=== PATIENT | male | born 1945 | race Caucasian/White ===

== ENCOUNTER 2019-02-16 12:17 | Emergency (ER) | payer MEDICARE, BC ==
[~2019-02-16] VITALS: Ht 177.8 cm; Wt 79.5 kg
[~2019-02-16 12:17] MED LIST: AMLO2.5T2 PO; ASPI-1265 PO; ATEN25TA PO; LEVO75TA PO; LISI-600 PO
[2019-02-16 12:26] VITALS: BP 155/69
[2019-02-16] MEDS ORDERED: normal saline 1000ml 1,000 ML IV ONE (13:00)
[2019-02-16] MEDS: acetaminophen 325mg tablet PO ONE ×2 (13:00→13:32)
[2019-02-16 13:42] LABS: BASOPHILS # (AUTO) 0.1 X10'3 (0-0.2); EOSINOPHILS # (AUTO) 0.1 X10'3 (0-0.9); LYMPHOCYTES # (AUTO) 2.3 X10'3 (1.1-4.8); MEAN CORPUSCULAR HEMOGLOBIN 31.8 PG (27.0-31.0); MONOCYTES # (AUTO) 1.2 X10'3 (0-0.9); MONOCYTES % (AUTO) 9.8 % (2-12)
[2019-02-16 13:44] LABS: BASOPHILS % (AUTO) 0.7 % (0-1); EOSINOPHILS % (AUTO) 0.7 % (0-6); HEMOGLOBIN 14.6 g/dl (14.0-17.9); LYMPHOCYTES % (AUTO) 18.5 % (21-51); MEAN CORPUSCULAR HGB CONC 33.2 g/dL (33.0-36.5); MEAN CORPUSCULAR VOLUME 95.7 FL (78-98); MEAN PLATELET VOLUME 8.9 FL (7.4-10.4); NEUTROPHILS # (AUTO) 8.7 X10'3 (1.8-7.7); NEUTROPHILS % (AUTO) 70.3 % (42-75); PLATELET COUNT 328 X10'3 (140-440); RED CELL DISTRIBUTION WIDTH 14.4 % (11.5-14.5); WHITE BLOOD COUNT 12.4 X10'3 (4.5-11.0)
[2019-02-16 13:52] LABS: PROTHROMBIN TIME 10.1 SECONDS (9.0-12.0)
[2019-02-16 13:59] LABS: ALANINE AMINOTRANSFERASE 24 U/L (12-78); ALBUMIN 4.2 G/DL (3.4-5.0); ALKALINE PHOSPHATASE 85 IU/L (46-116); ANION GAP 12 (8-16); ASPARTATE AMINO TRANSFERASE 21 U/L (10-37); BILIRUBIN,TOTAL 0.5 MG/DL (0.1-1.0); BLOOD UREA NITROGEN 13 MG/DL (7-18); BUN/CREATININE RATIO 19.4 (5.4-32.0); C-REACTIVE PROTEIN 4.66 MG/DL (0.0-0.5); CALCIUM 9.9 MG/DL (8.5-10.1); CHLORIDE 103 MMOL/L (99-107); CREATININE 0.67 MG/DL (0.60-1.10); GLUCOSE 117 MG/DL (70-104); POTASSIUM 3.5 MMOL/L (3.5-5.1); SODIUM 141 MMOL/L (135-145); TOTAL CARBON DIOXIDE 25.8 MMOL/L (24-32); TOTAL PROTEIN 8.3 G/DL (6.4-8.2); eGFR > 90 ML/MIN
[2019-02-16] MEDS ORDERED: iohexol 300mg/ml 100ml inj. ONE (14:10)
--- NOTE | 2019-02-16 14:38 | NUR ---
PT RETURNS FROM CT
[2019-02-16] MEDS ORDERED: HYDROcodone/acetaminophen 5mg/325mg tablet PO ONE (14:55)
[2019-02-16] MEDS ORDERED: ketorolac tromethamine 15mg/ml inj. IV ONE (14:55)
[2019-02-16] MEDS ORDERED: triamcinolone acetonide 40mg/ml inj IM ONE (15:05)
[2019-02-16] MEDS ORDERED: SULF1TAB49 PO (15:06)
[2019-02-16] MEDS ORDERED: sulfamethoxazole/trimethoprim DS (800/160mg) tablet PO ONE (15:10)
== END 2019-02-16 15:25 | disposition home or self-care (01) ==
LOC: ER 12:17
DX: M25.531 Pain in right wrist (principal); M79.89 Other specified soft tissue disorders; L53.8 Other specified erythematous conditions; I10 Essential (primary) hypertension; E03.9 Hypothyroidism, unspecified; F17.200 Nicotine dependence, unspecified, uncomplicated; Z56.0 Unemployment, unspecified; Z86.19 Personal history of other infectious and parasitic diseases; Z79.82 Long term (current) use of aspirin; Z79.899 Other long term (current) drug therapy; W22.8XXA Striking against or struck by other objects, initial encounter; Y93.89 Activity, other specified; Y92.89 Other specified places as the place of occurrence of the external cause; Y99.9 Unspecified external cause status
CPT/HCPCS: 36415; 73201; 80053; 83605; 84145; 85025; 85610; 85651; 86140; 87040; 96372; 96374; 99284; J1885; J3301; J7030; Q9967

== ENCOUNTER 2020-07-21 11:06 | Emergency (ER) | payer MEDICARE, OTHER ==
[~2020-07-21] VITALS: Ht 177.8 cm; Wt 75.9 kg
[2020-07-21] MEDS ORDERED: naproxen 500mg tablet PO ONE (13:05)
[2020-07-21] MEDS ORDERED: diphenhydrAMINE 25mg capsule PO ONE (13:05)
[2020-07-21 13:29] VITALS: BP 133/85
== END 2020-07-21 13:25 | disposition home or self-care (01) ==
LOC: ER 11:06
DX: T63.441A Toxic effect of venom of bees, accidental (unintentional), initial encounter (principal); Y92.89 Other specified places as the place of occurrence of the external cause; I10 Essential (primary) hypertension; E03.9 Hypothyroidism, unspecified; Z86.19 Personal history of other infectious and parasitic diseases; Z56.0 Unemployment, unspecified; Z79.82 Long term (current) use of aspirin; Z79.899 Other long term (current) drug therapy
CPT/HCPCS: 99283; Q0163

== ENCOUNTER 2020-11-15 14:43 | Emergency (ER) | payer OTHER, MEDICARE ==
[~2020-11-15] VITALS: Ht 177.8 cm; Wt 79.1 kg
[2020-11-15 15:09] LABS: BASOPHILS # (AUTO) 0.1 X10'3 (0-0.2); EOSINOPHILS # (AUTO) 0.2 X10'3 (0-0.9); EOSINOPHILS % (AUTO) 1.4 % (0-6); HEMATOCRIT 43.5 % (42.0-52.0); HEMOGLOBIN 14.8 g/dl (14.0-17.9); LYMPHOCYTES # (AUTO) 2.7 X10'3 (1.1-4.8); LYMPHOCYTES % (AUTO) 21.1 % (21-51); MEAN CORPUSCULAR HEMOGLOBIN 32.4 PG (27.0-31.0); MEAN CORPUSCULAR HGB CONC 33.9 g/dL (33.0-36.5); MEAN CORPUSCULAR VOLUME 95.6 FL (78-98); MEAN PLATELET VOLUME 8.4 FL (7.4-10.4); MONOCYTES # (AUTO) 1.2 X10'3 (0-0.9); MONOCYTES % (AUTO) 9.2 % (2-12); NEUTROPHILS # (AUTO) 8.7 X10'3 (1.8-7.7); NEUTROPHILS % (AUTO) 67.3 % (42-75); PLATELET COUNT 312 X10'3 (140-440); RED BLOOD COUNT 4.55 X10'6 (4.70-6.10); RED CELL DISTRIBUTION WIDTH 13.9 % (11.5-14.5)
[2020-11-15 15:23] LABS: ALANINE AMINOTRANSFERASE 30 U/L (12-78); ALBUMIN 4.1 G/DL (3.4-5.0); ALBUMIN/GLOBULIN RATIO 1.1 (1.1-1.5); ALKALINE PHOSPHATASE 89 IU/L (46-116); ANION GAP 9 (8-16); ASPARTATE AMINO TRANSFERASE 30 U/L (10-37); BILIRUBIN,TOTAL 0.5 MG/DL (0.1-1.0); BLOOD UREA NITROGEN 19 MG/DL (7-18); BUN/CREATININE RATIO 22.4 (5.4-32.0); CALCIUM 9.8 MG/DL (8.5-10.1); CHLORIDE 103 MMOL/L (99-107); CREATININE 0.85 MG/DL (0.60-1.10); GLUCOSE 103 MG/DL (70-104); POTASSIUM 3.7 MMOL/L (3.5-5.1); SODIUM 139 MMOL/L (135-145); TOTAL CARBON DIOXIDE 26.8 MMOL/L (24-32); TOTAL PROTEIN 7.7 G/DL (6.4-8.2); eGFR 88 ML/MIN
[2020-11-15] MEDS ORDERED: APIX5TAB3 PO (16:16)
[2020-11-15 16:35] VITALS: BP 123/79
== END 2020-11-15 17:03 | disposition home or self-care (01) ==
LOC: ER 14:43
DX: R00.2 Palpitations (principal); I48.91 Unspecified atrial fibrillation; I10 Essential (primary) hypertension; E03.9 Hypothyroidism, unspecified; Z86.19 Personal history of other infectious and parasitic diseases; Z72.89 Other problems related to lifestyle; Z56.0 Unemployment, unspecified; Z79.82 Long term (current) use of aspirin; Z79.899 Other long term (current) drug therapy
CPT/HCPCS: 36415; 71045; 80053; 83880; 84484; 85025; 93005; 99285

== ENCOUNTER 2022-04-09 11:09 | Emergency (ER) | payer OTHER, MEDICARE ==
[~2022-04-09] VITALS: Ht 177.8 cm; Wt 77.3 kg
[~2022-04-09 11:09] MED LIST changes: +APIX5TAB3 PO; -LISI-600 PO; +LISI20TA28 PO
[2022-04-09 11:27] VITALS: BP 110/54
[2022-04-09] MEDS ORDERED: DOXY100C43 PO (12:41)
[2022-04-09] MEDS ORDERED: CEPH-585 PO (12:41)
== END 2022-04-09 13:21 | disposition home or self-care (01) ==
LOC: ER 11:11
DX: L03.116 Cellulitis of left lower limb (principal); I10 Essential (primary) hypertension; E03.9 Hypothyroidism, unspecified; Z86.19 Personal history of other infectious and parasitic diseases; Z72.89 Other problems related to lifestyle; Z56.0 Unemployment, unspecified; Z79.82 Long term (current) use of aspirin; Z79.2 Long term (current) use of antibiotics; Z79.899 Other long term (current) drug therapy
CPT/HCPCS: 99283

== ENCOUNTER 2024-11-30 09:03 | Inpatient (IN) | payer MEDICARE, OTHER ==
[2024-11-24 11:35] LABS: BASOPHILS # (AUTO) 0.1 X10'3 (0-0.2); BASOPHILS % (AUTO) 0.8 % (0-1); EOSINOPHILS # (AUTO) 0.1 X10'3 (0-0.9); EOSINOPHILS % (AUTO) 0.8 % (0-6); LYMPHOCYTES # (AUTO) 2.2 X10'3 (1.1-4.8); LYMPHOCYTES % (AUTO) 21.8 % (21-51); MEAN CORPUSCULAR HEMOGLOBIN 33.3 PG (27.0-31.0); MEAN CORPUSCULAR HGB CONC 34.2 g/dL (33.0-36.5); MEAN CORPUSCULAR VOLUME 97.5 FL (78-98); MEAN PLATELET VOLUME 8.2 FL (7.4-10.4); MONOCYTES # (AUTO) 1.1 X10'3 (0-0.9); MONOCYTES % (AUTO) 10.5 % (2-12); NEUTROPHILS # (AUTO) 6.8 X10'3 (1.8-7.7); NEUTROPHILS % (AUTO) 66.1 % (42-75); PRE OP HEMATOCRIT 41.3 % (42.0-52.0); PRE OP HEMOGLOBIN 14.1 g/dL (14.0-17.9); PRE OP PLATELET COUNT 338 X10'3 (140-440); PRE OP WHITE BLOOD COUNT 10.2 10'3 (4.8-10.8); RED BLOOD COUNT 4.24 X10'6 (4.70-6.10); RED CELL DISTRIBUTION WIDTH 13.6 % (11.5-14.5)
[2024-11-24 12:16] LABS: ALBUMIN 4.2 G/DL (3.4-5.0); ALBUMIN/GLOBULIN RATIO 1.1 (1.1-1.5); ALKALINE PHOSPHATASE 77 IU/L (46-116); BLOOD UREA NITROGEN 16 MG/DL (7-18); CALCIUM 9.6 MG/DL (8.5-10.1); CHLORIDE 101 MMOL/L (99-107); PRE OP ALT 19 U/L (30-65); PRE OP ANION GAP 9 (8-16); PRE OP AST 18 U/L (10-37); PRE OP BILIRUB, TOTAL 0.6 MG/DL (0.0-1.0); PRE OP GLUCOSE 111 MG/DL (70-104); PRE OP POTASSIUM 3.7 MMOL/L (3.4-5.1); PRE OP SODIUM 138 MMOL/L (135-145); TOTAL CARBON DIOXIDE 27.7 MMOL/L (24-32); TOTAL PROTEIN 8.2 G/DL (6.4-8.2); eGFR > 90 ML/MIN
[~2024-11-30] VITALS: Ht 177.8 cm; Wt 74.8 kg
[2024-11-30] VITALS (38 sets, daily range): BP systolic 100–167; BP diastolic 63–84; PULSE 62–78; RESP 9–18; TEMP 97.8–98.6; O2SAT 93–99
[2024-11-30] MEDS: ROPIVAcaine inj 200 MG, epiNEPHrine inj 0.6 MG, morphine 10mg/ml inj. 5 MG in normal sa... IU ONE (07:10)
[~2024-11-30 09:03] MED LIST changes: +AMLO10TA PO; -AMLO2.5T2 PO; -ASPI-1265 PO; -ATEN25TA PO; +BUPIVACAINE/MELOXICAM 14 ML VIAL IL ONE; +FLEC50TA3 PO; +LISI1TAB51 PO; -LISI20TA28 PO; +vancomycin 1,000mg inj ONE
[2024-11-30] MEDS: ceFAZolin 2gm in dextrose, iso 50 ML IV ONE (09:56)
[2024-11-30] MEDS: tranexamic acid 1gm/0.7% sal. 100 ML IV ONE (09:56)
[2024-11-30] MEDS: VANCOMYCIN/H2O 1.5g/300mL PB 300 ML IV ONE (09:57)
[2024-11-30] MEDS: famotidine 20mg tablet PO ONE (09:57)
[2024-11-30] MEDS: ringers solution, lacted 1,000 ML IV SCH ×2 (09:57→12:35)
[2024-11-30] MEDS ORDERED: tetracaine 1% (10mg/ml) pres. free inj. ONE (11:28)
[2024-11-30] MEDS ORDERED: fentaNYL/PF 50MCG/1 ML 2ML syringe ONE (11:30)
[2024-11-30] MEDS ORDERED: MIDAZolam 1 MG/ML 5ML VIAL ONE (11:31)
[2024-11-30] MEDS ORDERED: ondansetron/PF 4mg/2ml inj IV PRN ×2 (12:35→14:30)
[2024-11-30] MEDS ORDERED: meperidine/PF 25mg/ml syringe IV PRN ×2 (12:35)
[2024-11-30] MEDS ORDERED: proCHLORperazine 10 MG/2 ml inj IV PRN (12:35)
[2024-11-30] MEDS ORDERED: ROPIVAcaine 0.5% (5mg/ml) 30ml vial ONE (14:11)
[2024-11-30] MEDS ORDERED: propofol inj 20 ML IV ONE ×3 (14:11)
[2024-11-30] MEDS: tranexamic acid inj. 750 MG in normal saline 100ml IV soln 92.5 ML IV ONE ×2 (14:30→17:22)
[2024-11-30] MEDS ORDERED: HYDROmorphone inj. 0.5 MG/0.5 ML DISP.SYRIN IV PRN (14:30)
[2024-11-30] MEDS ORDERED: magnesium hydroxide 30ml (MOM) UD suspension PO PRN (14:30)
[2024-11-30] MEDS ORDERED: diphenhydrAMINE 25mg capsule PO PRN ×2 (14:30)
[2024-11-30] MEDS ORDERED: bisacodyl 10mg suppository rectal RC PRN (14:30)
[2024-11-30] MEDS ORDERED: naloxone 0.4 mg/ml inj IV PRN (14:30)
[2024-11-30] MEDS: meperidine/PF 25mg/ml syringe IV PRN (15:44)
[2024-11-30] MEDS ORDERED: ceFAZolin/D5W- 1GM premix 50 ML IV SCH (16:00)
[2024-11-30] MEDS: morphine 2 MG/ML inj. syringe IV PRN (16:16)
[2024-11-30] MEDS ORDERED: ROPIVAcaine 0.2% (10 MG/5 ML) BOLUS INJECTION ADDCANAL PRN (18:05)
[2024-11-30] MEDS: morphine 4 MG/ML inj SYRINge IV PRN (18:06)
[2024-11-30] MEDS: ROPIVAcaine 0.2%/PF PUMP/bolus 545 ML ADDCANAL SCH (18:50)
[2024-11-30] MEDS: sennosides 8.6mg tablet PO SCH (21:57)
[2024-11-30] MEDS: gabapentin 300mg capsule PO SCH (21:57)
[2024-11-30] MEDS: acetaminophen 325mg tablet PO SCH (21:58)
[2024-11-30] MEDS: potassium Cl 20mEq in NS 1,000 ML IV SCH (22:02)
[2024-11-30] MEDS: ceFAZolin/D5W- 1GM premix 50 ML IV SCH (22:02)
[2024-11-30] MEDS: oxyCODONE IR 5mg (immed. release) tablet PO PRN (22:02)
[2024-12-01] MEDS: vancomycin/NS 1 GM ADD-VANTAGE 250 ML IV SCH (00:01)
[2024-12-01 02:00] VITALS: BP 135/78; PULSE 77; RESP 16; TEMP 99.3; O2SAT 97
[2024-12-01] MEDS: HYDROmorphone 1 mg/ml syringe IV PRN (05:26)
[2024-12-01 06:00] VITALS: BP 134/83; PULSE 67; RESP 18; TEMP 98.6; O2SAT 96
[2024-12-01] MEDS: HYDROchlorothiazide 12.5mg capsule PO SCH (08:53)
[2024-12-01] MEDS: levoTHYROXINE 75mcg tablet PO SCH (08:55)
[2024-12-01] MEDS: flecainide 50mg tablet PO SCH (08:55)
[2024-12-01] MEDS: amLODIPine 5mg tablet PO SCH (08:55)
[2024-12-01] MEDS: lisinopril 20mg tablet PO SCH (08:55)
[2024-12-01] MEDS: enoxaparin 40mg/0.4ml syringe SQ SCH (08:57)
[2024-12-01 09:57] LABS: BASOPHILS % (AUTO) 0.3 % (0-1); EOSINOPHILS % (AUTO) 0 % (0-6); HEMATOCRIT 36.9 % (42.0-52.0); HEMOGLOBIN 12.2 g/dl (14.0-17.9); LYMPHOCYTES # (AUTO) 0.9 X10'3 (1.1-4.8); LYMPHOCYTES % (AUTO) 5.8 % (21-51); MEAN CORPUSCULAR HEMOGLOBIN 32.4 PG (27.0-31.0); MEAN CORPUSCULAR HGB CONC 33.1 g/dL (33.0-36.5); MEAN CORPUSCULAR VOLUME 97.9 FL (78-98); MEAN PLATELET VOLUME 8.8 FL (7.4-10.4); MONOCYTES # (AUTO) 1.5 X10'3 (0-0.9); MONOCYTES % (AUTO) 9.3 % (2-12); NEUTROPHILS # (AUTO) 13.5 X10'3 (1.8-7.7); NEUTROPHILS % (AUTO) 84.6 % (42-75); PLATELET COUNT 293 X10'3 (140-440); RED BLOOD COUNT 3.77 X10'6 (4.70-6.10); RED CELL DISTRIBUTION WIDTH 13.1 % (11.5-14.5)
[2024-12-01 10:17] LABS: ALANINE AMINOTRANSFERASE 16 U/L (12-78); ALBUMIN 3.3 G/DL (3.4-5.0); ALKALINE PHOSPHATASE 60 IU/L (46-116); ANION GAP 9 (8-16); ASPARTATE AMINO TRANSFERASE 13 U/L (10-37); BILIRUBIN,TOTAL 1.1 MG/DL (0.1-1.0); BLOOD UREA NITROGEN 13 MG/DL (7-18); BUN/CREATININE RATIO 15.3 (10.0-20.0); CALCIUM 8.5 MG/DL (8.5-10.1); CHLORIDE 99 MMOL/L (99-107); CREATININE 0.85 MG/DL (0.60-1.10); GLUCOSE 193 MG/DL (70-104); POTASSIUM 3.9 MMOL/L (3.5-5.1); SODIUM 131 MMOL/L (135-145); TOTAL CARBON DIOXIDE 23.5 MMOL/L (24-32); TOTAL PROTEIN 6.5 G/DL (6.4-8.2); eCRCL 72 ML/MIN; eGFR 87 ML/MIN
[2024-12-01 18:00] VITALS: BP 108/60; PULSE 80; RESP 17; TEMP 101.1; O2SAT 96
[2024-12-01 22:00] VITALS: BP 97/52; PULSE 78; RESP 16; TEMP 98.8; O2SAT 95
[2024-12-02] VITALS (7 sets, daily range): BP systolic 106–121; BP diastolic 61–73; PULSE 72–88; RESP 16–18; TEMP 98.1–102.8; O2SAT 94–97
[2024-12-02] MEDS: amLODIPine 5mg tablet PO SCH (07:19)
[2024-12-02] MEDS ORDERED: acetaminophen 325mg tablet PO PRN (14:30)
[2024-12-02] MEDS: oxyCODONE IR 5mg (immed. release) tablet PO PRN (19:12)
[2024-12-02] MEDS: acetaminophen 325mg tablet PO PRN (21:52)
[2024-12-03] VITALS (7 sets, daily range): BP systolic 99–129; BP diastolic 53–69; PULSE 76–85; RESP 16–68; TEMP 98.8–100.6; O2SAT 94–98
[2024-12-03 07:59] LABS: BASOPHILS % (AUTO) 0.3 % (0-1); EOSINOPHILS # (AUTO) 0.1 X10'3 (0-0.9); EOSINOPHILS % (AUTO) 0.9 % (0-6); HEMATOCRIT 30.5 % (42.0-52.0); HEMOGLOBIN 10.1 g/dl (14.0-17.9); LYMPHOCYTES % (AUTO) 7.2 % (21-51); MEAN CORPUSCULAR HEMOGLOBIN 32.3 PG (27.0-31.0); MEAN CORPUSCULAR HGB CONC 33.2 g/dL (33.0-36.5); MEAN CORPUSCULAR VOLUME 97.3 FL (78-98); MEAN PLATELET VOLUME 8.3 FL (7.4-10.4); MONOCYTES # (AUTO) 1.9 X10'3 (0-0.9); MONOCYTES % (AUTO) 12.9 % (2-12); NEUTROPHILS # (AUTO) 11.3 X10'3 (1.8-7.7); NEUTROPHILS % (AUTO) 78.7 % (42-75); PLATELET COUNT 246 X10'3 (140-440); RED BLOOD COUNT 3.14 X10'6 (4.70-6.10); RED CELL DISTRIBUTION WIDTH 13.5 % (11.5-14.5); WHITE BLOOD COUNT 14.3 X10'3 (4.5-11.0)
[2024-12-03 08:18] LABS: ALANINE AMINOTRANSFERASE 24 U/L (12-78); ALBUMIN 2.7 G/DL (3.4-5.0); ALBUMIN/GLOBULIN RATIO 0.8 (1.1-1.5); ALKALINE PHOSPHATASE 45 IU/L (46-116); ANION GAP 10 (8-16); ASPARTATE AMINO TRANSFERASE 56 U/L (10-37); BILIRUBIN,TOTAL 0.7 MG/DL (0.1-1.0); BLOOD UREA NITROGEN 13 MG/DL (7-18); BUN/CREATININE RATIO 16.7 (10.0-20.0); CALCIUM 8.7 MG/DL (8.5-10.1); CHLORIDE 101 MMOL/L (99-107); CREATININE 0.78 MG/DL (0.60-1.10); GLUCOSE 153 MG/DL (70-104); POTASSIUM 3.7 MMOL/L (3.5-5.1); SODIUM 136 MMOL/L (135-145); TOTAL CARBON DIOXIDE 24.6 MMOL/L (24-32); TOTAL PROTEIN 6.2 G/DL (6.4-8.2); eCRCL 78 ML/MIN; eGFR > 90 ML/MIN
[2024-12-04 06:00] VITALS: BP 115/62; PULSE 76; RESP 20; TEMP 99.1; O2SAT 97
[2024-12-04 08:00] VITALS: RESP 20; O2SAT 97
[2024-12-04 10:00] VITALS: BP 101/41; PULSE 78; RESP 18; TEMP 100.2; O2SAT 96
[2024-12-04 14:13] VITALS: RESP 16
== END 2024-12-04 15:00 | DRG 470 ==
LOC: PAS IN 09:03 → PACU 14:41 → ORTHO 4S 19:11
PROVIDERS: ADMIT Orthopaedic Surgery; ATTEND Orthopaedic Surgery
PROC: 3E0T3BZ Introduction of Anesthetic Agent into Peripheral Nerves and Plexi, Percutaneous Approach (ICD-10-PCS; 2024-11-30)
PROC: 0SRC0J9 Replacement of Right Knee Joint with Synthetic Substitute, Cemented, Open Approach (ICD-10-PCS; principal; 2024-11-30 11:28)
DX: M17.11 Unilateral primary osteoarthritis, right knee (principal); I48.20 Chronic atrial fibrillation, unspecified; Z96.652 Presence of left artificial knee joint; I10 Essential (primary) hypertension; E03.9 Hypothyroidism, unspecified; Z79.01 Long term (current) use of anticoagulants; Z85.05 Personal history of malignant neoplasm of liver; Z79.899 Other long term (current) drug therapy; Z87.891 Personal history of nicotine dependence
CPT/HCPCS: 36415; 73560; 80053; 82948; 84145; 85025; 85651; 87081; 97110; 97116; 97161; 97530; A4215; A6212; A6253; A6258; A6446; A6449; A6454; A7000; C1713; C1758; C1776; C9250; G0378; J0171; J0690; J1171; J1650; J2175; J2250; J2270; J2274; J2704; J2795; J3010; J3370; J3372; J3480; J3490; J7120